=== PATIENT | female | born 1980 | race Hispanic/Latino ===

== ENCOUNTER 2018-01-22 12:57 | Emergency (ER) | payer MEDICARE ==
[2018-01-22 14:00] LABS: Basophils # (Auto) 0.1 K/mm3 (0.0-0.1); Basophils % (Auto) 1.3 % (0.0-1.8); Eosinophils # (Auto) 0.6 K/mm3 (0.0-0.4); Hematocrit 38.3 % (30.3-42.9); Hemoglobin 12.8 gm/dl (10.1-14.3); Lymphocytes # (Auto) 3.2 K/mm3 (1.2-5.4); Lymphocytes % (Auto) 38.9 % (13.4-35.0); Mean Corpuscular HGB Conc 34 % (30-34); Mean Corpuscular Hemoglobin 33 pg (28-32); Mean Corpuscular Volume 97 fl (79-97); Monocytes # (Auto) 0.4 K/mm3 (0.0-0.8); Monocytes % (Auto) 4.4 % (0.0-7.3); Platelet Count 323 K/mm3 (140-440); Red Blood Count 3.93 M/mm3 (3.65-5.03)
[2018-01-22 14:19] LABS: BUN/Creatinine Ratio 18; Blood Urea Nitrogen 9 mg/dL (7-17); Calcium 8.8 mg/dL (8.4-10.2); Hemolysis Index 9
--- NOTE | 2018-01-22 17:20 | Emergency Department Report ---
HPI - General Chief Complaint: Extremity Problem,Nontraumatic Time Seen by Provider: 01/22/18 16:54 - HPI HPI: 37-year-old female presents to the emergency department with complaint of a few days of swelling to the feet, hands and arms. She denies any skin color change, rash, shortness of breath, fever or chest pain. She has a history of arthritis, pseudotumor, IBS. She is currently staying at the [facility] for substance abuse history. She also says that she has been feeling very tired recently. She has not taken anything for her symptoms prior to presentation. She has a primary care physician back in [facility]. ED Past Medical Hx - Past Medical History Previous Medical History?: Yes Hx Arthritis: Yes Additional medical history: pseudo tumor 2013, IBS - Surgical History Past Surgical History?: Yes Additional Surgical History: Back sx 2011, hysterectomy, - Social History Smoking Status: Current Every Day Smoker Substance Use Type: Methamphetamines - Medications Home Medications: Home Medications Medication Instructions Recorded Confirmed Last Taken Type Furosemide [Lasix] 20 mg PO QDAY #3 tablet 01/22/18 Unknown Rx ED Review of Systems ROS: Stated complaint: PAIN SWELLING Other details as noted in HPI Comment: All other systems reviewed and negative Constitutional: denies: chills, fever Eyes: denies: eye pain, eye discharge, vision change ENT: denies: ear pain, throat pain Respiratory: denies: cough, shortness of breath, wheezing Cardiovascular: edema. denies: chest pain, palpitations Gastrointestinal: denies: abdominal pain, nausea, diarrhea Genitourinary: denies: urgency, dysuria, discharge Musculoskeletal: arthralgia. denies: joint swelling Skin: denies: rash, lesions Neurological: denies: headache, weakness, paresthesias Physical Exam - Physical Exam Vital Signs: Vital Signs 01/22/18 13:04 Temperature 98.1 F Pulse Rate 110 H Respiratory 16 Rate Blood Pressure 149/78 O2 Sat by Pulse 99 Oximetry Physical Exam: GENERAL: The patient is well-developed well-nourished. HENT: Normocephalic. Atraumatic. Patient has moist mucous membranes. EYES: Extraocular motions are intact. Pupils equal reactive to light bilaterally. NECK: Supple. Trachea is midline. CHEST/LUNGS: Clear to auscultation. There is no respiratory distress noted. HEART/CARDIOVASCULAR: Regular. There is no tachycardia. There is no murmur. ABDOMEN: Abdomen is soft, nontender. Patient has normal bowel sounds. There is no abdominal distention. SKIN: Skin is warm and dry. There is some mild nonpitting swelling of the feet and ankles bilaterally. There is some mild swelling of the hands and distal forearms. No skin color change, rash or lesions. NEURO: The patient is awake, alert, and oriented. The patient is cooperative. The patient has no focal neurologic deficits. The patient has normal speech. MUSCULOSKELETAL: There is no tenderness or deformity. There is no limitation range of motion. There is no evidence of acute injury. ED Course Vital Signs 01/22/18 13:04 Temperature 98.1 F Pulse Rate 110 H Respiratory 16 Rate Blood Pressure 149/78 O2 Sat by Pulse 99 Oximetry ED Medical Decision Making - Lab Data Result diagrams: 01/22/18 13:27 01/22/18 13:27 - Medical Decision Making The patient came for evaluation of some swelling she's been having in the feet and ankles, hands and forearm as well as feeling overly tired and/or fatigue. There is no focal, motor or sensory deficits in her cranial nerves are intact. Heart and lung sounds are normal auscultation. Vital signs stable throughout her ED course. The patient's labs are mostly unremarkable and do not show any etiology of her symptoms. No signs of any systemic or urinary tract infection. There is no proteinuria. No electrolyte abnormalities and the patient has normal thyroid function. BNP is low showing no signs of CHF. Some of the symptoms may be due to the fact that the patient has been switching different medications throughout her different stays at psychiatric facilities. However she appears safe for discharge home at this time. She was given a dose of Lasix here and a prescription for a few days of further Lasix to be taken to help with the swelling. She's been encouraged to see her primary care physician as soon as she is able to do so from the rehabilitation facility. She will return to the ER with any worsening or symptoms or any acute distress. - Differential Diagnosis CHF, renal failure, venous stasis, cellulitis, hypothyroidism Critical Care Time: No Critical care attestation.: If time is entered above; I have spent that time in minutes in the direct care of this critically ill patient, excluding procedure time. ED Disposition Clinical Impression: Edema Qualifiers: Edema type: unspecified Qualified Code(s): R60.9 - Edema, unspecified Fatigue Qualifiers: Fatigue type: unspecified Qualified Code(s): R53.83 - Other fatigue Disposition: TO HOME OR SELFCARE Is pt being admited?: No Condition: Stable Instructions: Leg Edema (ED), Fatigue (ED) Additional Instructions: Please follow-up with your primary care physician as soon as you're able to do so. Return to the emergency Department with any worsening of your symptoms or any acute distress. Prescriptions: Furosemide [Lasix] 20 mg PO QDAY #3 tablet Referrals: PRIMARY CARE, [Primary Care Provider] - [facility] Time of Disposition: 19:10
[2018-01-22 17:48] LABS: Bilirubin,Urine NEG (Negative); Blood,Urine NEG (Negative); Color,Urine Yellow (Yellow); Mucus,Urine 1+ /HPF; Protein,Urine <15 mg/dL mg/dL (Negative)
[2018-01-22 18:01] VITALS: BP 117/90
[2018-01-22] MEDS ORDERED: LASIX PO ONE (19:08)
== END 2018-01-22 19:16 | disposition home or self-care (01) ==
LOC: ED 12:57
DX: R60.9 Edema, unspecified (principal); R53.83 Other fatigue; M19.90 Unspecified osteoarthritis, unspecified site; F17.200 Nicotine dependence, unspecified, uncomplicated; F15.10 Other stimulant abuse, uncomplicated; Z90.710 Acquired absence of both cervix and uterus
CPT/HCPCS: 36415; 80048; 81001; 83880; 84443; 85025; 99283